=== PATIENT | female | born 1960 | race Caucasian/White ===

== ENCOUNTER 2020-10-17 23:19 | Emergency (ER) | payer OTHER ==
[~2020-10-17] VITALS: Ht 165.1 cm; Wt 78.0 kg
--- NOTE | 2020-10-17 23:40 | NUR ---
PT PRESENTS TO THE ER C/O HIGH BP READING AT HOME (1534/135) X1 DAY.PT A&OX4, PT DENIES SOB, CP, OR HEADACHE. PT STATES HER HEAD "FEELS PRESSURE AND THROBBING IN HER EARS THAT STARTED LAST NIGHT". PT BREATHING EVENLY AND UNLABORED. PT SKIN WARM AND INTACT PT CONNECTED TO THE TONGUE AND GROOVE MACHINE FEEDER AND POX. PT MADE COMFORTABLE WITH CALL LIGHT WITHIN REACH
[2020-10-17] MEDS ORDERED: CLONIDINE HCL 0.1 MG TABLET ONE (23:58)
[2020-10-18] MEDS ORDERED: CLONIDINE HCL 0.1 MG TABLET PO ONE
[2020-10-18] MEDS ORDERED: LORAZEPAM 0.5 MG TABLET ONE (00:06)
[2020-10-18] MEDS: LORAZEPAM 0.5 MG TABLET PO ONE (00:11)
--- NOTE | 2020-10-18 00:11 | NUR ---
urine sent to lab
--- NOTE | 2020-10-18 00:20 | NUR ---
RT AC 20G
--- NOTE | 2020-10-18 00:24 | NUR ---
blood collected and sent to lab
[2020-10-18 00:26] LABS: BASOPHILS # (AUTO) 0.1 /CMM (0.0-0.2); BASOPHILS % (AUTO) 1.3 % (0.0-2.0); EOSINOPHILS % (AUTO) 0.8 % (0.0-6.0); HEMATOCRIT 38 % (33-45); HEMOGLOBIN 12.6 g/dL (11.5-14.8); LYMPHOCYTES # (AUTO) 1.7 /CMM (0.8-4.8); LYMPHOCYTES % (AUTO) 20.2 % (20.0-44.0); MEAN CORPUSCULAR HGB CONC 34 g/dl (31.0-36.0); MEAN CORPUSCULAR VOLUME 86 fL (82-100); MONOCYTES # (AUTO) 0.4 /CMM (0.1-1.30); NEUTROPHILS # (AUTO) 6.1 /CMM (1.8-8.9); NEUTROPHILS % (AUTO) 72.7 % (43.0-81.0); PLATELET COUNT (AUTO) 309 /CMM (150-450); RED BLOOD CELL COUNT(AUTO) 4.37 MIL/uL (4.0-5.2); WHITE BLOOD COUNT (AUTO) 8.5 K/uL (4.3-11.0)
[2020-10-18] MEDS ORDERED: NITROGLYCERIN PACKET 1 GM PACKET ONE (00:27)
[2020-10-18] MEDS ORDERED: ASPIRIN EC 81 MG TABLET.DR PO ONE (00:27)
[2020-10-18 00:28] LABS: BILIRUBIN,URINE Negative (NEGATIVE); COLOR,URINE YELLOW (YELLOW); LEUKOCYTE ESTERASE ,URINE Negative (NEGATIVE); NITRITE, URINE Negative (NEGATIVE); PROTEIN,URINE Negative (NEGATIVE); UGLUCOSE Negative (NEGATIVE); UROBILINOGEN,URINE 0.2 EU/dL (0.2)
[2020-10-18] MEDS: ASPIRIN 81 MG TAB.CHEW PO ONE (00:35)
[2020-10-18] MEDS: NITROGLYCERIN PACKET 1 GM PACKET TD ONE (00:35)
[2020-10-18 00:40] LABS: CALCIUM, SERUM 9.6 mg/dL (8.5-10.1); CARBON DIOXIDE 27 mmol/L (21-32); CHLORIDE 100 mmol/L (98-107); CREATININE 0.9 mg/dL (0.6-1.3); GLUCOSE 119 mg/dL (74-106); POTASSIUM 3.4 mmol/L (3.5-5.1); SODIUM SERUM 137 mmol/L (136-145); UREA NITROGEN, BLOOD 12 mg/dL (7-18)
[2020-10-18 00:56] LABS: ALANINE AMINOTRANSFERASE 29 U/L (12-78); ALBUMIN 4.1 g/dL (3.4-5.0); ALKALINE PHOSPHATASE 33 U/L (46-116); ASPARTATE AMINOTRANSFERASE 19 U/L (15-37); B-TYPE NATRIURETIC PEPTIDE 32 PG/ML (0-125); BILIRUBIN,DIRECT 0.1 mg/dL (0.0-0.2); BILIRUBIN,TOTAL 0.6 mg/dL (0.2-1.0); TOTAL PROTEIN, SERUM 7.6 g/dL (6.4-8.2)
--- NOTE | 2020-10-18 01:07 | NUR ---
Tyrel alvarado in [facility] - 10/18/20 at 0107 by HANNAH 20G RIGHT COYNE
--- NOTE | 2020-10-18 03:08 | NUR ---
called lab for a repeat troponin
--- NOTE | 2020-10-18 03:33 | NUR ---
lab at bedside for redraw
--- NOTE | 2020-10-18 03:40 | NUR ---
Patient discharged to home in stable condition. Written and verbal after care instructions given. Patient verbalizes understanding of instruction. IV removed. Catheter intact and site benign. Pressure and 4x4 applied to site. No bleeding noted.Pt ambulatory with a steady gait
[2020-10-18 05:24] VITALS: BP 110/73
== END 2020-10-18 03:40 | disposition home or self-care (01) ==
LOC: ER 23:19
DX: I10 Essential (primary) hypertension (principal); R94.31 Abnormal electrocardiogram [ECG] [EKG]; Z90.89 Acquired absence of other organs; Z85.3 Personal history of malignant neoplasm of breast
CPT/HCPCS: 36415; 71045-TC; 80048-TC; 80076-TC; 83880; 84484-TC; 85025-TC